=== PATIENT | female | born 1930 | race Caucasian/White ===

== ENCOUNTER 2017-01-06 13:13 | Emergency (ER) | payer MEDICARE ==
[~2017-01-06] VITALS: Ht 154.9 cm; Wt 43.2 kg
[~2017-01-06 13:13] MED LIST: ADV250INH IH; ATRV10T PO; CALC1TAB99 PO; CHOL10002 PO; CITA20TA11 PO; CLOT10TR MM; LORA0.5T PO; MAGN400T4 PO; MULT-1007 PO; PROP120C2 PO; RANI150C4 PO; WARF1TAB PO; WARF1TAB6 PO
[2017-01-06 13:14] VITALS: BP 149/53; PULSE 140; RESP 9; O2SAT 99
--- NOTE | 2017-01-06 14:00 | DRSVH ---
PROCEDURE: X-RAY CHEST ONE VIEW, PORTABLE ([id number]) INDICATIONS: chest pain TECHNIQUE: One view of the chest was acquired. COMPARISON: [facility], CR, XR CHEST 1VW (PORTABLE), 07/31/2015, 17:25. [facility], CR, XR CHEST 2VW, 06/16/2015, 10:01. FINDINGS: Surgical changes and devices: Cardiac pacemaking device and dual chamber leads as were previously the case.. Lungs and pleura: No pleural effusions or pneumothorax. Lungs are abnormal, with mild interstitial prominence and large lobe lines consistent with underlying COPD. Mediastinum: Mediastinal contours appear normal. Heart size is normal. Bones and chest wall: No suspicious bony lesions. Overlying soft tissues appear unremarkable. IMPRESSION: COPD, pacemaker and leads in stable position, source of new pain is not seen. Dictated by: Benedict Arrieta M.D. on 01/06/2017 at 13:57 Approved by: Benedict Arrieta M.D. on 01/06/2017 at 13:58
[2017-01-06 15:15] VITALS: BP 177/85; PULSE 70; RESP 11; O2SAT 98
--- NOTE | 2017-01-06 15:28 | ED.REPORT ---
HPI-Chest Pain 40 and Over Date of Service Jan 06, 2017 ED Provider: Yue Adames MD The patient is an 86 year old female with history of osteoporosis, afib ( anticoagulated on Warfarin, pacemaker), HTN, ulcers, and DM who presents to the ED via EMS due to chest pain onset [employer]. She describes the pain as an "ache." She has never had a heart attack. Nursing Notes Stated Complaint: CHEST PAIN Chief Complaint: Chest Pain Nursing Notes Reviewed: Yes Allergies: Coded Allergies: alprazolam (Verified Adverse Reaction, Severe, Hallucinations, 04/09/14) "Nightmares" hydrocodone (Verified Adverse Reaction, Severe, Nausea and rash, 08/10/15) trazodone (Verified Adverse Reaction, Severe, Hallucinations, 04/09/14) metronidazole (Verified Adverse Reaction, Mild, 04/09/14) nitrofurantoin (Verified Adverse Reaction, Mild, NAUSEA, 04/09/14) Sulfa (Sulfonamide Antibiotics) (Verified Adverse Reaction, Unknown, nausea, 04/09/14) Scheduled Atorvastatin (Lipitor) 10 Mg Tab 10 MG PO DAILY Calcium Carbonate/Vitamin D3 (Calcium 600 + Vit D 200 Tablet) 1 Each Tablet 1 EACH PO DAILY Cholecalciferol (Vitamin D3) 1,000 Unit Tablet 1,000 UNIT PO DAILY Citalopram (Citalopram) 20 Mg Tablet 20 MG PO QAM Clotrimazole (Clotrimazole) 10 Mg Geraldo 10 MG MM BID Fluticasone/Salmeterol (Advair 250-50 Diskus) 60 Puff/Inh Disk 1 PUFF IH BID Magnesium Oxide (Magnesium Oxide) 400 Mg Tablet 400 MG PO DAILY Multivitamin (Multi-Vitamin Daily) 1 Each Tablet 1 EACH PO DAILY Propranolol ER (Propranolol ER) 120 Mg Cap.sa.24h 120 MG PO QAM Ranitidine (Ranitidine) 150 Mg Capsule 150 MG PO HS Warfarin Sodium (Warfarin Sodium) 1 Mg Tablet 1 MG PO SunMonTueGuillaumedFri Warfarin Sodium (Coumadin) 1 Mg Tablet 0.5 MG PO ThuSat Scheduled PRN Lorazepam (Lorazepam) 0.5 Mg Tablet 0.25 MG PO Q8 PRN PRN For Anxiety General Time Seen by MD: 13:33 Chief Complaint Chest pain Hx Obtained From: Patient Arrived By: Ambulance Sudden in Onset?: Yes Onset Occurred: Just prior to arrival Symptom Duration: Since onset Location: : Chest left Radiation: : Does not radiate Recent Healthcare: No recent doctor visit, No recent hospitalization Similar Sx Previous: No Past Medical History Past Medical History Notes: PCP: Dr. Ortiz Past Medical History mild cognitive impairment. Non-ischemic cardiomyopathy Atrial tachycardias Mild to moderate coronary artery disease Lady [place] syndrome Chronic cough GERD Diverticulitis Familial tremor COPD with bronchitis Dementia Depression Diet controlled DM Reports: Diabetes mellitus Past Surgical History stents placed bilateral cataracts Reports: Appendectomy, Cholecystectomy, Hysterectomy Reports: Pacemaker insertion Smoking History Never Smoker Social History Alcohol Use: Denies alcohol use Drug Use: Denies drug use Ambulatory Status Independent Review of Systems Cardiovascular: Reports: Chest pain Complete sys rev & neg: except as marked. Physical Exam Initial Vital Signs Vital Signs (First) Date Time Temp Pulse Resp B/P Pulse Ox O2 Delivery O2 Flow Rate FiO2 01/06/17 13:14 37.0 140 9 149/53 99 Room Air Initial VS: Reviewed Head / Eyes: Atraumatic, Normocephalic ENT: Mucous membranes moist, Conjunctiva normal Neck: Supple, Non-tender Back: No CVA tenderness Lymphatic: No lymphadenopathy Extremities: Vascular intact, No swelling (no edema), No tenderness Skin: Warm, Dry, No cyanosis Neurologic: Alert, Oriented, Nonfocal (forgetfull) Psychiatric: Mood/affect normal, Behavior normal General/Constitutional: Awake, Alert, Cooperative Respiratory / Chest: Breath sounds = bilat, No respiratory distress Cardiovascular: Heart rate NL, Regular rhythm, Heart sounds NL, No murmurs Abdomen: Atraumatic, Soft, Non-tender Interpretation & Diagnostics Lab Results Interpretation Result Diagram: 01/06/17 1536 01/06/17 1536 Test 01/06/17 13:40 01/06/17 15:36 Hold Urine Received (Received) White Blood Count 7.3th/mm3 (3.8-10.1) Red Blood Count 4.13mil/mm3 (3.90-5.20) Hemoglobin 10.3g/dL (12.0-15.6) Hematocrit 33.1% (35.0-46.0) Mean Corpuscular Volume 80.1fL (81-100) Mean Corpuscular Hemoglobin 24.9pg (27.0-35.0) Mean Corpuscular Hemoglobin Concent 31.1% (32.0-37.0) Red Cell Distribution Width 16.7% (12.3-15.4) Platelet Count 317bil/L (150-400) Neutrophils (%) (Auto) 53.3% (40-74) Lymphocytes (%) (Auto) 34.2% (14-46) Monocytes (%) (Auto) 10.9% (4-12) Eosinophils (%) (Auto) 1.1% (0-5) Basophils (%) (Auto) 0.5% (0-3) Sodium Level 138mEq/L (134-144) Potassium Level 4.4mEq/L (3.5-5.2) Chloride Level 99mEq/L (97-108) Carbon Dioxide Level 30mmol/L (18-29) Blood Urea Nitrogen 10mg/dL (8-27) Creatinine 0.51mg/dL (0.57-1.00) Estimat Glomerular Filtration Rate 164mL/min (>59) Glucose Level 103mg/dL (60-99) Calcium Level 8.6mg/dL (8.5-10.1) Magnesium Level 2.4mg/dL (1.6-2.6) Total Bilirubin 0.3mg/dL (0.0-1.2) Aspartate Amino Transf (AST/SGOT) 23U/L (0-50) Alanine Aminotransferase (ALT/SGPT) 19U/L (0-32) Alkaline Phosphatase 69U/L (25-165) Troponin T < 0.010ug/L (0.0-0.011) Total Protein 6.0g/dL (6.4-8.4) Albumin 3.9g/dL (3.4-5.0) Hold Hernandez Top Tube Received (Received) X-Ray Chest Interpretation Chest Xray Interpretation: IMPRESSION: COPD, pacemaker and leads in stable position, source of new pain is not seen. Dictated by: Benedict Arrieta M.D. on 01/06/2017 at 13:57 Approved by: Benedict Arrieta M.D. on 01/06/2017 at 13:58 View: Portable Interpretation / Wet Read by: Interpret - Radiologist Re-Eval/Medical Decision Med Decision/Clinical Course Patient presents with acute onset chest pain at rest reports that she has no previous cardiac history has not had a heart attack and is sent in by her friend. Shortly after arrival her daughter calls to note that she has had multiple episodes of admission with chest pain with negative rule out each time. She is followed by Dr. Mcintosh. His belief is that most of her chest pain at this point is musculoskeletal. The daughter also reports significant cognitive deficits which are confirmed throughout her emergency room visit today. Rule out workup is negative in the emergency room she remains chest free at time of discharge and throughout emergency room stay. Will follow up with Dr. Mcintosh as needed Counseled Regarding: Diagnosis, Lab results, Need for follow-up, When/why to return to ED Discharge & Departure Primary Impression: Non-cardiac chest pain Disposition: Home Discharge Condition All VS Reviewed: Yes Condition: Stable Patient Instructions: Chest Pain (ED) Additional Instructions: Your workup today does not suggest any life-threatening findings. There is no evidence of heart attack, near heart attack, pneumonia, or collapsed lung. Please continue all of your usual medications. If you have any new or different symptoms please feel free to return to the emergency department Please follow up with Dr. Mcintosh. A copy of the note with labs and studies from today will be forwarded to him I hope you have a relaxing and pain-free weekend Referrals: Nataliya Ortiz MD (PCP) Scribe Attestation Portion of this note were transcribed by Jose Luis Reinoso. I, Dr. Adames, personally performed the history, physical exam, and medical decision-making: I reviewed and confirmed the accuracy for the information in the transcribed note. Signed by: stewart Bull, 01/06/17 1500 copies to: Zach Mcintosh MD; Nataliya Ortiz MD, Shawna L MD Jan 06, 2017 15:28 JOSE LUIS REINOSO Jan 06, 2017 15:35
[2017-01-06 15:43] LABS: BASOPHILS % (AUTO) 0.5 % (0-3); EOSINOPHILS % (AUTO) 1.1 % (0-5); MONOCYTES % (AUTO) 10.9 % (4-12); Mean Corpuscular Hemoglobin 24.9 pg (27.0-35.0); Mean Corpuscular Volume 80.1 fL (81-100); NEUTROPHILS % (AUTO) 53.3 % (40-74); Platelet Count 317 bil/L (150-400)
[2017-01-06 15:45] VITALS: BP 169/69; PULSE 70; RESP 13; O2SAT 99
[2017-01-06 16:23] LABS: Magnesium 2.4 mg/dL (1.6-2.6); TROPONIN T < 0.010 ug/L (0.0-0.011)
[2017-01-06 17:11] VITALS: BP 169/69; PULSE 70; RESP 13; O2SAT 99
== END 2017-01-06 17:11 | disposition home or self-care (01) ==
LOC: EDBD 13:13 → SED 13:13
DX: R07.89 Other chest pain (principal); I10 Essential (primary) hypertension; E11.59 Type 2 diabetes mellitus with other circulatory complications; K21.9 Gastro-esophageal reflux disease without esophagitis; I25.10 Atherosclerotic heart disease of native coronary artery without angina pectoris; Z95.0 Presence of cardiac pacemaker; Z79.01 Long term (current) use of anticoagulants; Z88.1 Allergy status to other antibiotic agents; Z88.2 Allergy status to sulfonamides; Z88.5 Allergy status to narcotic agent; Z88.8 Allergy status to other drugs, medicaments and biological substances

== ENCOUNTER 2017-01-08 10:48 | Emergency (ER) | payer MEDICARE ==
[~2017-01-08] VITALS: Ht 154.9 cm; Wt 43.2 kg
[2017-01-08 10:54] VITALS: BP 127/66; PULSE 70; RESP 13; O2SAT 96
--- NOTE | 2017-01-08 10:57 | ED.REPORT ---
HPI-Chest Pain 40 and Over Date of Service Jan 08, 2017 ED Provider: Gavino Turner MD Pt is an 86 year old female with a hx of COPD, pacemaker on Warfarin, and DM presenting to the ED via EMS complaining of moderate aching chest pain onset around 0830 today. Associated symptoms include mild dizziness. Denies nausea, diaphoresis, SOB or palpitations. She reports that the chest pain began when she woke up this morning. Pt states that she called her neighbor who is a nurse , and she came over and called EMS. Pain is now resolved, and did not radiate. Pt was given 324 mg ASA en route, and pre-hospital report shows the pt profoundly hypertensive at 206/97. She reports similar symptoms in the past, and was just seen in follow up for lung nodules which are improving. Her hx is complicated due to the pt's memory problems. She was seen in the ED 2 days ago for similar symptoms. Nursing Notes Stated Complaint: CHEST PAIN Chief Complaint: Chest Pain Nursing Notes Reviewed: Yes ([employer] not reconciled - EMR indicates Warfarin use) Allergies: Coded Allergies: alprazolam (Verified Adverse Reaction, Severe, Hallucinations, 04/09/14) "Nightmares" hydrocodone (Verified Adverse Reaction, Severe, Nausea and rash, 08/10/15) trazodone (Verified Adverse Reaction, Severe, Hallucinations, 04/09/14) metronidazole (Verified Adverse Reaction, Mild, 04/09/14) nitrofurantoin (Verified Adverse Reaction, Mild, NAUSEA, 04/09/14) Sulfa (Sulfonamide Antibiotics) (Verified Adverse Reaction, Unknown, nausea, 04/09/14) Scheduled Atorvastatin (Lipitor) 10 Mg Tab 10 MG PO DAILY Calcium Carbonate/Vitamin D3 (Calcium 600 + Vit D 200 Tablet) 1 Each Tablet 1 EACH PO DAILY Cholecalciferol (Vitamin D3) 1,000 Unit Tablet 1,000 UNIT PO DAILY Citalopram (Citalopram) 20 Mg Tablet 20 MG PO QAM Clotrimazole (Clotrimazole) 10 Mg Geraldo 10 MG MM BID Fluticasone/Salmeterol (Advair 250-50 Diskus) 60 Puff/Inh Disk 1 PUFF IH BID Magnesium Oxide (Magnesium Oxide) 400 Mg Tablet 400 MG PO DAILY Multivitamin (Multi-Vitamin Daily) 1 Each Tablet 1 EACH PO DAILY Propranolol ER (Propranolol ER) 120 Mg Cap.sa.24h 120 MG PO QAM Ranitidine (Ranitidine) 150 Mg Capsule 150 MG PO HS Warfarin Sodium (Warfarin Sodium) 1 Mg Tablet [facility] Sodium (Coumadin) 1 Mg Tablet 0.5 MG PO ThuSat Scheduled PRN Lorazepam (Lorazepam) 0.5 Mg Tablet 0.25 MG PO Q8 PRN PRN For Anxiety General Time Seen by MD: 10:51 Chief Complaint Chest pain Hx Obtained From: EMS Arrived By: Ambulance Sudden in Onset?: No Onset Occurred: 1 - 4 hours ago Symptom Duration: Duration unknown Quality: Aching, Painful Radiation: : Does not radiate Migration/Movement: Reports: None Severity: Current: No pain currently Severity: Maximum: Moderate Recent Healthcare: No recent hospitalization, Recent doctor visit Similar Sx Previous: Yes Past Medical History Past Medical History Notes: PCP: Dr. 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 Non-ischemic cardiomyopathy Atrial tachycardias Mild to moderate coronary artery disease Lady [place] syndrome (hx of MAC) Chronic cough GERD Diverticulitis Familial tremor COPD with bronchitis Dementia Anxiety Depression Diet controlled DM Dyslipidemia Mitral-Valve regurgitation Squamous cell skin cancer, upper arm Esophageal dysmotility Pulmonary nodules Patent foramen ovale Asthma Atrophic vaginitis Acne rosacea Reports: Diabetes mellitus Past Surgical History stents placed bilateral cataracts hx of prior ablation Reports: Appendectomy, Cholecystectomy, Hysterectomy Reports: Pacemaker insertion Smoking History Former Smoker (65 years ago) Social History Alcohol Use: Denies alcohol use Drug Use: Denies drug use Ambulatory Status Independent Review of Systems Respiratory: Reports: Shortness of breath Cardiovascular: Reports: Chest pain, Denies: Palpitations GI: Denies: Nausea, Vomiting Skin: Denies Diaphoresis Neurologic: Reports: Dizziness Complete sys rev & neg: except as marked. Physical Exam Initial Vital Signs Vital Signs (First) Date Time Temp Pulse Resp B/P Pulse Ox O2 Delivery O2 Flow Rate FiO2 01/08/17 10:54 36.7 70 13 127/66 96 Room Air Initial VS: Reviewed, Unavailable (none on chart, vitals from yesterday's ED Visit notable for HR 140) Head / Eyes: Atraumatic, Normocephalic, PERRL ENT: Mucous membranes moist, Conjunctiva normal, No scleral icterus Skin: Warm, Dry, No cyanosis Neurologic: Alert, Oriented, Nonfocal Psychiatric: Mood/affect normal, Behavior normal, Normal thought content General/Constitutional: Awake, Alert, No acute distress Mild dementia Respiratory / Chest: Breath sounds NL, Breath sounds = bilat, No respiratory distress, No rales, No rhonchi, No wheezing, No stridor, No chest tenderness Cardiovascular: Heart rate NL, Regular rhythm, Pulses = bilaterally Heart Rate / Rhythm: Negative: Tachycardia Not tachycardic like 2 days ago. Good paced rhythm. Neck: Atraumatic, No JVD Lower Extremity / Pelvis / MS: No edema Interpretation & Diagnostics Interpretation & Diagnostics: Labs from yesterday's ED visit reviewed. Troponin x1 negative, no INR listed (prior records indicate warfarin and listed on ED note, but meds not reconciled yesterday) Lab Results Interpretation Result Diagram: 01/08/17 1132 01/08/17 1132 Test 01/08/17 11:32 01/08/17 12:55 01/08/17 13:15 White Blood Count 6.4th/mm3 (3.8-10.1) Red Blood Count 4.00mil/mm3 (3.90-5.20) Hemoglobin 10.1g/dL (12.0-15.6) Hematocrit 32.0% (35.0-46.0) Mean Corpuscular Volume 80.0fL (81-100) Mean Corpuscular Hemoglobin 25.3pg (27.0-35.0) Mean Corpuscular Hemoglobin Concent 31.6% (32.0-37.0) Red Cell Distribution Width 16.5% (12.3-15.4) Platelet Count 333bil/L (150-400) Neutrophils (%) (Auto) 59.2% (40-74) Lymphocytes (%) (Auto) 26.4% (14-46) Monocytes (%) (Auto) 11.7% (4-12) Eosinophils (%) (Auto) 1.4% (0-5) Basophils (%) (Auto) 1.1% (0-3) Prothrombin Time 22.3sec (8.1-12.5) Prothromb Time International Ratio 2.05ratio Sodium Level 137mEq/L (134-144) Potassium Level 4.0mEq/L (3.5-5.2) Chloride Level 101mEq/L (97-108) Carbon Dioxide Level 26mmol/L (18-29) Blood Urea Nitrogen 7mg/dL (8-27) Creatinine 0.46mg/dL (0.57-1.00) Estimat Glomerular Filtration Rate 184mL/min (>59) Glucose Level 138mg/dL (60-99) Calcium Level 8.1mg/dL (8.5-10.1) Magnesium Level 1.9mg/dL (1.6-2.6) Total Bilirubin 0.3mg/dL (0.0-1.2) Aspartate Amino Transf (AST/SGOT) 20U/L (0-50) Alanine Aminotransferase (ALT/SGPT) 16U/L (0-32) Alkaline Phosphatase 61U/L (25-165) Total Protein 5.7g/dL (6.4-8.4) Albumin 3.4g/dL (3.4-5.0) Hold Hernandez Top Tube Received (Received) Hold Urine Received (Received) Troponin T < 0.010ug/L (0.0-0.011) Lab Results Interpretation: CBC normal CMP normal Troponin #1 negative Troponin #2 negative INR therapeutic ECG Interpretation ECG Interpretation: Atrial-sensed ventricular-paced rhythm. Unchanged from yesterday. Time: 11:03 Interpreted by: ED physician Normal ECG Interpretation: Normal rate (71) X-Ray Chest Interpretation Chest Xray Interpretation: IMPRESSION: Left costophrenic sulcus atelectasis or infiltrate. Acute disease is not seen the chest otherwise. Dictated by: Colin Grove M.D. on 01/08/2017 at 11:38 View: Portable, 1 view Interpretation / Wet Read by: Interpret - Radiologist Re-Eval/Medical Decision Med Decision/Clinical Course This is an 86-year-old female presents to the emergency department complaining of chest pain. She does have mild dementia and so cannot remember certain details. She was just seen yesterday for an episode of chest pain and released. Those charts were reviewed. Apparently a neighbor was visiting visiting visiting and the patient was having some chest discomfort so the neighbor called 911. Patient reports a chest ache, but cannot really further describe it is no clear radiation features, she denies any exertional component , and gave contradictory answers initially as to whether or not it resolved-old placing it was a trace component that was mostly improved. She had received aspirin and nitroglycerin 3 by EMS prior to arrival. She was mildly hypertensive on arrival as well. She clinically appeared well. She received an additional nitroglycerin and nitro paste in the department with complete resolution of symptoms. She arrived to the emergency department she indicated she wanted to leave and go home. Reviewed the charts from yesterday with the patient presented with chest pain. The vitals from that presentation include a heart rate of 140, although this was not matched by the EKG that was performed yesterday. The patient does have a pacemaker. She has had a recent Chest CT scan in October that was notable for coronary artery disease or at least coronary calcification per the radiology report, last stress test was number of years ago and was allegedly negative at that time. Interestingly the patient does not want her family contacted, and it sounds like this is because the family had to come pick her up from the emergency department yesterday when she left the department, and she does not want them to know that she was brought back to the emergency department today. She was a paced rhythm on EKG. Outside of the EKG the patient has heart score of 5 (patient is not fully scoreable due to the pacing rhythm). Additionally, since the patient does as a repeat visit, does not appear to have had recent stress testing, she will be reasonable. However when I recommended admission, the patient declines since she wishes to go home. She does have some memory deficits which complicate things, but appears to have intact, adequate decisional capacity. Furthermore in this setting medical management still seems reasonable and appropriate, which appears to have been the same conclusion reached previously by her mill representative. While the patient wanted to go home directly, I was able to have the patient agreed to remainder [facility] department for set of serial troponins-these were negative. Blood work was normal, demonstrates a therapeutic INR. I am not finding indication of a pulmonary embolism, and again the patient's therapeutic INR, there are no findings of pneumothorax, and no clinical features to really suggest dissection and I can appreciate. He has just had a CT scan past 2 months, and I am not finding any indication for repeat CT today. Patient's blood pressures did normalize. On reexamination, the patient's asymptomatic and is generally clinically well- appearing. He is informed of the serial troponins, again offered the chance to remain, but again requests a taxi home. I have indicated that I would recommend close follow-up with her mill representative given the sequential ED visits, and the intermediate MACE risk. Patient does agree to return to the emergency department if symptoms recur. Talk to the on-call mill representative to facilitate close follow-up. The patient's advised to call the mill representative office tomorrow to schedule an appointment. Patient is discharged in stable condition, assymptomatic. Source of Hx: Old records Time of Eval: 12:18 Patient Status: Condition improved Re-Evaluation/Progress Note: Pt chest pain is resolved. Discussed plan for admission. Pt is hesitant to be admitted. Time of Eval: 14:22 Patient Status: Condition improved Re-Evaluation/Progress Note: Discussed negative Troponin results. Pt would like to be discharged and agrees to return with new or worsening symptoms. Consultation : Referral / Consult Name: Saravanan Bender MD Consulted With: Cardiology Call Returned at: 14:31 Note: Dr. Bender will facilitate follow up with Dr. Mcintosh's office. Differential Diagnosis: Positive: Chest pain, acute, Negative: Anxiety disorder, Aortic stenosis, Congestive heart failure, Dysrhythmia, Esophageal rupture, Gun shot wound chest, Peptic ulcer disease, Pneumonia, Pneumothorax, Pulmonary edema, Pulmonary embolism, Rib fracture Counseled Regarding: Diagnosis, Lab results, Need for follow-up, When/why to return to ED Discharge & Departure Primary Impression: Chest pain Chest pain type: unspecified Qualified Code: R07.9 - Chest pain, unspecified Additional Impression: Anticoagulated on warfarin Disposition: ADMITTED TO HOSPITAL Discharge Condition All VS Reviewed: Yes Condition: Improved Referrals: Nataliya Ortiz MD (PCP) Nakul Attestation Portions of this note were transcribed by Carine Cedeno. I, Dr. Turner personally performed the history, physical exam and medical decision-making; I reviewed and confirmed the accuracy of the information in the transcribed note. Signed by: Nakul Loco, 01/08/2017 and [Time]. copies to: Nataliya Ortiz MD, Matthew F MD Jan 08, 2017 10:57 CARINE CEDENO Jan 08, 2017 11:16
[2017-01-08] MEDS ORDERED: Nitroglycerin 2% 1 Gm Ointment TOPICAL SCH (11:10)
--- NOTE | 2017-01-08 11:42 | DRSVH ---
PROCEDURE: X-RAY CHEST ONE VIEW, PORTABLE ([id number]) INDICATIONS: chest pain TECHNIQUE: One view of the chest was acquired. COMPARISON: [facility], CR, XR CHEST 1VW (PORTABLE), 07/31/2015, 17:25. [facility], CR, XR CHEST 1VW (PORTABLE), 01/06/2017, 13:38. FINDINGS: Surgical changes and devices: A 4-lead pacemaker is present from the left side. Monitor leads are see n over the chest and there is oxygen tubing present. Lungs and pleura: No pleural effusions or pneumothorax. Lungs are clear except for some patchy dens ity at the left costophrenic sulcus suggesting some atelectasis or infiltrate.. Mediastinum: Mediastinal contours appear normal. Heart size is normal. Bones and chest wall: No suspicious bony lesions. Overlying soft tissues appear unremarkable. IMPRESSION: Left costophrenic sulcus atelectasis or infiltrate. Acute disease is not seen the chest o therwise. Dictated by: Colin Grove M.D. on 01/08/2017 at 11:38 Approved by: Colin Grove M.D. on 01/08/2017 at 11:40
[2017-01-08 11:45] LABS: BASOPHILS % (AUTO) 1.1 % (0-3); EOSINOPHILS % (AUTO) 1.4 % (0-5); MONOCYTES % (AUTO) 11.7 % (4-12); Mean Corpuscular Hemoglobin 25.3 pg (27.0-35.0); NEUTROPHILS % (AUTO) 59.2 % (40-74); Platelet Count 333 bil/L (150-400)
[2017-01-08 12:05] LABS: TROPONIN T 0.01 ug/L (0.0-0.011)
[2017-01-08 12:15] LABS: INR 2.05 ratio
[2017-01-08 12:17] LABS: Magnesium 1.9 mg/dL (1.6-2.6)
[2017-01-08 12:22] VITALS: BP 170/75; PULSE 76; RESP 14; O2SAT 100
[2017-01-08 14:08] VITALS: BP 148/79; PULSE 99; RESP 15; O2SAT 100
[2017-01-08 15:20] VITALS: BP 140/61; PULSE 73; O2SAT 100
== END 2017-01-08 15:24 | disposition home or self-care (01) ==
LOC: SED 11:15
DX: R07.89 Other chest pain (principal); R42 Dizziness and giddiness; E11.59 Type 2 diabetes mellitus with other circulatory complications; I25.10 Atherosclerotic heart disease of native coronary artery without angina pectoris; I42.8 Other cardiomyopathies; J44.9 Chronic obstructive pulmonary disease, unspecified; F03.90 Unspecified dementia, unspecified severity, without behavioral disturbance, psychotic disturbance, mood disturbance, and anxiety; E78.5 Hyperlipidemia, unspecified; Z95.0 Presence of cardiac pacemaker; Z95.5 Presence of coronary angioplasty implant and graft; Z79.01 Long term (current) use of anticoagulants; Z87.891 Personal history of nicotine dependence; Z88.1 Allergy status to other antibiotic agents; Z88.2 Allergy status to sulfonamides; Z88.5 Allergy status to narcotic agent; Z88.8 Allergy status to other drugs, medicaments and biological substances

== ENCOUNTER 2017-01-19 12:06 | Emergency (ER) | payer MEDICARE ==
[~2017-01-19] VITALS: Ht 154.9 cm; Wt 41.8 kg
[2017-01-19 12:17] VITALS: BP 116/65; PULSE 70; RESP 16; O2SAT 98
[2017-01-19] MEDS ORDERED: LORazepam 0.5 mg Tablet PO ONE (12:45)
[2017-01-19 12:55] VITALS: BP 118/67; PULSE 69; RESP 16; O2SAT 98
--- NOTE | 2017-01-19 13:14 | ED.REPORT ---
HPI-Chest Pain 40 and Over Date of Service Jan 19, 2017 ED Provider: Yue Adames MD History of Present Illness: Luma Das is a 86 year old woman with a PMH of mild cognitive difficulties, CAD, Afib s/p ablation and pacer implantation, HTN, and anxiety. She presents today complaining of mild sub-sternal chest pain without associated SOB, diaphoresis or other constitutional symptoms. She has had multiple ED visits with similar complaints over the past year, all of which have led to a benign workup. Her daughter relates that there is likley a psychiatric component to these repeated presentations that they are actively working to evaluate and treat. She further states that in the past 0.25 mg of Ativan have taken care of her symptoms in the past. Nursing Notes Stated Complaint: CHEST PAIN Chief Complaint: Chest Pain Nursing Notes Reviewed: Yes Allergies: Coded Allergies: alprazolam (Verified Adverse Reaction, Severe, Hallucinations, 01/19/17) "Nightmares" hydrocodone (Verified Adverse Reaction, Severe, Nausea and rash, 01/19/17) trazodone (Verified Adverse Reaction, Severe, Hallucinations, 01/19/17) metronidazole (Verified Adverse Reaction, Mild, 01/19/17) nitrofurantoin (Verified Adverse Reaction, Mild, NAUSEA, 01/19/17) Sulfa (Sulfonamide Antibiotics) (Verified Adverse Reaction, Unknown, nausea, 01/19/17) Scheduled Atorvastatin (Lipitor) 10 Mg Tab 10 MG PO DAILY Calcium Carbonate/Vitamin D3 (Calcium 600 + Vit D 200 Tablet) 1 Each Tablet 1 EACH PO DAILY Cholecalciferol (Vitamin D3) 1,000 Unit Tablet 1,000 UNIT PO DAILY Citalopram (Citalopram) 20 Mg Tablet 20 MG PO QAM Clotrimazole (Clotrimazole) 10 Mg Geraldo 10 MG MM BID Fluticasone/Salmeterol (Advair 250-50 Diskus) 60 Puff/Inh Disk 1 PUFF IH BID Magnesium Oxide (Magnesium Oxide) 400 Mg Tablet 400 MG PO DAILY Multivitamin (Multi-Vitamin Daily) 1 Each Tablet 1 EACH PO DAILY Propranolol ER (Propranolol ER) 120 Mg Cap.sa.24h 120 MG PO QAM Ranitidine (Ranitidine) 150 Mg Capsule 150 MG PO HS Warfarin Sodium (Warfarin Sodium) 1 Mg Tablet 1 [facility] [place] Warfar[facility] Sodium (Coumadin) 1 Mg Tablet 0.5 MG PO ThuSat Scheduled PRN Lorazepam (Lorazepam) 0.5 Mg Tablet 0.25 MG PO Q8 PRN PRN For Anxiety General Time Seen by MD: 12:00 Chief Complaint Chest pain Hx Obtained From: Patient Sudden in Onset?: No Onset Occurred: 1 - 4 hours ago Symptom Duration: Waxes and wanes Location: : Chest left (More midline) Quality: Aching Radiation: : Does not radiate Severity: Current: Mild Severity: Maximum: Mild Recent Healthcare: Recent doctor visit Similar Sx Previous: Yes Risk Factors )( CAD Risk Stratification Hypertension Known CAD Past Medical History Past Medical History Notes: PCP: Dr. 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 Non-ischemic cardiomyopathy Atrial tachycardias Mild to moderate coronary artery disease [place] syndrome (hx of MAC) Chronic cough GERD Diverticulitis Familial tremor COPD with bronchitis Dementia Anxiety Depression Diet controlled DM Dyslipidemia Mitral-Valve regurgitation Squamous cell skin cancer, upper arm Esophageal dysmotility Pulmonary nodules Patent foramen ovale Asthma Atrophic vaginitis Acne rosacea Reports: Diabetes mellitus Past Surgical History stents placed bilateral cataracts hx of prior ablation Reports: Appendectomy, Cholecystectomy, Hysterectomy Reports: Pacemaker insertion Smoking History Former Smoker Social History Alcohol Use: Denies alcohol use Drug Use: Denies drug use Ambulatory Status Independent Review of Systems Cardiovascular: Reports: Chest pain Complete sys rev & neg: except as marked. Physical Exam Physical Exam Notes: Gen: A/O x3 pleasant mildly confused elderly woman in NAD Neck: Supple, non tender, no thyromegally HEENT: mucous membranes slightly dry, PERRL, EOMI CV: RRR, no murmurs rubs or gallops, subQ pacer in L upper chest Abdomen: soft, non-tender, no organomegally Extr: No cyanosis, clubbing or edema, thin skin with multiple bruises Neuro: CN 2-12 grossly intact, no focal neurologic deficit. Initial Vital Signs Vital Signs (First) Date Time Temp Pulse Resp B/P Pulse Ox O2 Delivery O2 Flow Rate FiO2 01/19/17 12:17 37.1 70 16 116/65 98 Room Air Initial VS: Reviewed Interpretation & Diagnostics Lab Results Interpretation Test 01/19/17 13:53 Hold Purple Top Tube Received (Received) Hold Blue Top Tube Received (Received) Hold Red Top Tube Received (Received) Hold Elsa Top Tube Received (Received) Hold Hernandez Top Tube Received (Received) Re-Eval/Medical Decision Med Decision/Clinical Course After discussion with her daughter it became apparent that this is very unlikely to be a concerning issue. The patient's ECG was benign and her symptoms largely resolved follow administration of Ativan. The patient presents a high risk for further unnecessary evaluation, but her family is actively working on a strategy to help avoid such circumstances in the future. Counseled Regarding: Diagnosis Discharge & Departure Shift Change Sign-Out Patient Care Transferred: No Discussed Complaint(s): Yes Response to Therapy: Improved Primary Impression: Non-cardiac chest pain Additional Impression: Anxiety Disposition: Home Discharge Condition All VS Reviewed: Yes Condition: Stable Patient Instructions: Chest Pain (ED) Additional Instructions: The chest pain you are feeling is highly likely to be due to a small vessel in your heart that is not dangerous, there is also likely a component of anxiety contributing to your symptoms. There is no need for further evaluation at this time. If in the future you experience chest pain much worse than what you are experiencing currently with associated sweating, radiation of pain to the arm or jaw, shortness of breath, or profound weakness please come in to the ER for further evaluation. Referrals: Nataliya Ortiz MD (PCP) Attending Statement Patient seen and examined. Agree with assessment and plan as above. copies to: Nataliya Ortiz MD, David E DO Jan 19, 2017 13:14 Yue Adames MD Jan 19, 2017 19:15
[2017-01-19 15:14] VITALS: BP 162/69; PULSE 70; RESP 16; O2SAT 97
== END 2017-01-19 15:15 | disposition home or self-care (01) ==
LOC: SED 12:06
DX: R07.89 Other chest pain (principal); F41.9 Anxiety disorder, unspecified; G31.84 Mild cognitive impairment of uncertain or unknown etiology; I25.10 Atherosclerotic heart disease of native coronary artery without angina pectoris; I48.91 Unspecified atrial fibrillation; I10 Essential (primary) hypertension; E11.9 Type 2 diabetes mellitus without complications; K21.9 Gastro-esophageal reflux disease without esophagitis; J44.9 Chronic obstructive pulmonary disease, unspecified; E78.5 Hyperlipidemia, unspecified; J45.909 Unspecified asthma, uncomplicated; Z95.0 Presence of cardiac pacemaker; Z95.818 Presence of other cardiac implants and grafts; Z87.891 Personal history of nicotine dependence; Z79.01 Long term (current) use of anticoagulants; Z88.8 Allergy status to other drugs, medicaments and biological substances; Z88.5 Allergy status to narcotic agent; Z88.1 Allergy status to other antibiotic agents; Z88.2 Allergy status to sulfonamides

== ENCOUNTER 2017-01-20 16:12 | Emergency (ER) | payer MEDICARE ==
[~2017-01-20] VITALS: Ht 154.9 cm; Wt 41.8 kg
[2017-01-20 16:17] VITALS: BP 155/73; PULSE 70; RESP 16; O2SAT 99
[2017-01-20 16:58] LABS: BASOPHILS % (AUTO) 0.6 % (0-3); EOSINOPHILS % (AUTO) 1.3 % (0-5); Mean Corpuscular Hemoglobin 25.7 pg (27.0-35.0); NEUTROPHILS % (AUTO) 57.7 % (40-74); Platelet Count 358 bil/L (150-400)
[2017-01-20 17:23] LABS: TROPONIN T < 0.010 ug/L (0.0-0.011)
[2017-01-20 17:30] LABS: Magnesium 2.3 mg/dL (1.6-2.6)
--- NOTE | 2017-01-20 17:59 | ED.REPORT ---
HPI-Chest Pain 40 and Over Date of Service Jan 20, 2017 ED Provider: Harjeet Bull MD The patient is a 86 year old woman with history of mild cognitive difficulties, CAD, Afib s/p ablation and pacer implantation on warfarin, HTN, and anxiety, who presents to the emergency department with her daughter complaining of substernal chest pain that began this morning around 0900 when she woke up. Her daughter states the patient is unable to remember when the pain started and has given her two different stories. The pain started at sometime this morning around 0900 and continued until around 1600. Her pain is not worse with exertion. She does notice increased pain with coughing. Her daughter believes she may have had a panic attack and gave the patient Ativan. She denies acidic taste in her mouth or acid reflux symptoms. She has had multiple ED visits with similar complaints over the past year, all of which have led to a benign workup. Her most recent visit was yesterday. Her daughter has a plan to get in contact with a psychiatrist. She has not had any recent falls or head injuries. Nursing Notes Stated Complaint: CHEST PAIN Chief Complaint: Chest Pain Nursing Notes Reviewed: Yes Allergies: Coded Allergies: hydroxyzine (Verified Allergy, Severe, memory loss, 01/20/17) alprazolam (Verified Adverse Reaction, Severe, Hallucinations, 01/20/17) "Nightmares" hydrocodone (Verified Adverse Reaction, Severe, Nausea and rash, 01/20/17) trazodone (Verified Adverse Reaction, Severe, Hallucinations, 01/20/17) metronidazole (Verified Adverse Reaction, Mild, 01/20/17) nitrofurantoin (Verified Adverse Reaction, Mild, NAUSEA, 01/20/17) Sulfa (Sulfonamide Antibiotics) (Verified Adverse Reaction, Unknown, nausea, 01/20/17) Scheduled Atorvastatin (Lipitor) 10 Mg Tab 10 MG PO DAILY Calcium Carbonate/Vitamin D3 (Calcium 600 + Vit D 200 Tablet) 1 Each Tablet 1 EACH PO DAILY Cholecalciferol (Vitamin D3) 1,000 Unit Tablet 1,000 UNIT PO DAILY Citalopram (Citalopram) 20 Mg Tablet 20 MG PO QAM Clotrimazole (Clotrimazole) 10 Mg Geraldo 10 MG MM BID Fluticasone/Salmeterol (Advair 250-50 Diskus) 60 Puff/Inh Disk 1 PUFF IH BID Magnesium Oxide (Magnesium Oxide) 400 Mg Tablet 400 MG PO DAILY Multivitamin (Multi-Vitamin Daily) 1 Each Tablet 1 EACH PO DAILY Propranolol ER (Propranolol ER) 120 Mg Cap.sa.24h 120 MG PO QAM Ranitidine (Ranitidine) 150 Mg Capsule 150 MG PO HS Warfarin Sodium (Warfarin Sodium) 1 Mg Tablet 1 MG PO Sun[facility]WedFri Warfarin Sodium (Coumadin) 1 Mg Tablet 0.5 MG PO ThuSat Scheduled PRN Lorazepam (Lorazepam) 0.5 Mg Tablet 0.25 MG PO Q8 PRN PRN For Anxiety General Time Seen by MD: 17:58 Chief Complaint Chest pain Hx Obtained From: Patient, Daughter Arrived By: Walk-in Sudden in Onset?: Yes Onset Occurred: 9 - 12 hours ago Symptom Duration: 5 - 8 hours Location: : Substernal Quality: Painful Severity: Current: Mild Severity: Maximum: Moderate Recent Healthcare: No recent hospitalization, Recent doctor visit Similar Sx Previous: Yes Past Medical History Past Medical History Notes: PCP: Dr. Ortiz seen in ED yesterday for chest pain Nuclear stress test November [address] of the chest October 2016 [facility] for lung nodules, but also interpreted as positive for coronary artery disease Past Medical History Mild cognitive impairment with mild memory impairment. Non-ischemic cardiomyopathy Atrial tachycardias Mild to moderate coronary artery disease Lady [place] syndrome (hx of MAC) Chronic cough GERD Diverticulitis Familial tremor COPD with bronchitis Dementia Anxiety Depression Diet controlled DM Dyslipidemia Mitral-Valve regurgitation Squamous cell skin cancer, upper arm Esophageal dysmotility Pulmonary nodules Patent foramen ovale Asthma Atrophic vaginitis Acne rosacea Atrial fibrillation on Warfarin Past Surgical History Cardiac stents placed Bilateral cataracts Hx of prior ablation Reports: Appendectomy, Cholecystectomy, Hysterectomy Reports: Pacemaker insertion Family History Noncontributory Smoking History Former Smoker Social History Alcohol Use: Denies alcohol use Drug Use: Denies drug use Other Social History: Good social support, Local resident Ambulatory Status Independent Review of Systems Respiratory: Reports: Non-productive cough, Denies: Dyspnea on exertion Cardiovascular: Reports: Chest pain Psychiatric: Reports: Anxiety Complete sys rev & neg: except as marked. Physical Exam Initial Vital Signs Vital Signs (First) Date Time Temp Pulse Resp B/P Pulse Ox O2 Delivery O2 Flow Rate FiO2 01/20/17 16:17 36.1 70 16 155/73 99 Room Air Initial VS: Reviewed Head / Eyes: Atraumatic, Normocephalic, PERRL Neck: Supple, Non-tender, Full range of motion Lymphatic: No lymphadenopathy Extremities: Vascular intact, Neuro intact, No swelling, No tenderness Skin: Warm, Dry, No cyanosis Neurologic: Alert, Nonfocal Psychiatric: Mood/affect normal, Behavior normal, Normal thought content General/Constitutional: Awake, Alert, Cooperative Respiratory / Chest: Atraumatic, Breath sounds NL, Breath sounds = bilat, No respiratory distress, No rales, No rhonchi, No wheezing, No stridor, No chest tenderness Cardiovascular: Heart rate NL, Heart sounds NL, No murmurs, No rubs, Cap refill not delayed, Peripheral circulation NL, Pulses = bilaterally Heart Rate / Rhythm: Positive: Irregular rhythm Abdomen: Atraumatic, Soft, Non-tender, McBurney's non-tender, No guarding, No rebound, BS normoactive, No distention, No hernia, No palpable mass Lower Extremity / Pelvis / MS: Neurologic intact, Vascular intact No calf swelling or tenderness. ENT: Airway patent Mouth: Positive: Mucous membranes dry (slightly) Interpretation & Diagnostics Lab Results Interpretation Result Diagram: 01/20/17 1645 01/20/17 1645 Test 01/20/17 16:45 01/20/17 20:13 01/20/17 20:53 White Blood Count 8.4th/mm3 (3.8-10.1) Red Blood Count 4.36mil/mm3 (3.90-5.20) Hemoglobin 11.2g/dL (12.0-15.6) Hematocrit 34.9% (35.0-46.0) Mean Corpuscular Volume 80.0fL (81-100) Mean Corpuscular Hemoglobin 25.7pg (27.0-35.0) Mean Corpuscular Hemoglobin Concent 32.1% (32.0-37.0) Red Cell Distribution Width 15.8% (12.3-15.4) Platelet Count 358bil/L (150-400) Neutrophils (%) (Auto) 57.7% (40-74) Lymphocytes (%) (Auto) 27.3% (14-46) Monocytes (%) (Auto) 13.0% (4-12) Eosinophils (%) (Auto) 1.3% (0-5) Basophils (%) (Auto) 0.6% (0-3) Prothrombin Time 28.7sec (8.1-12.5) Prothromb Time International Ratio 2.63ratio Sodium Level 130mEq/L (134-144) Potassium Level 4.6mEq/L (3.5-5.2) Chloride Level 93mEq/L (97-108) Carbon Dioxide Level 25mmol/L (18-29) Blood Urea Nitrogen 12mg/dL (8-27) Creatinine 0.49mg/dL (0.57-1.00) Estimat Glomerular Filtration Rate 172mL/min (>59) Glucose Level 141mg/dL (60-99) Calcium Level 8.8mg/dL (8.5-10.1) Magnesium Level 2.3mg/dL (1.6-2.6) Total Bilirubin 0.2mg/dL (0.0-1.2) Aspartate Amino Transf (AST/SGOT) 27U/L (0-50) Alanine Aminotransferase (ALT/SGPT) 21U/L (0-32) Alkaline Phosphatase 74U/L (25-165) Total Protein 6.9g/dL (6.4-8.4) Albumin 4.1g/dL (3.4-5.0) Hold Hernandez Top Tube Received (Received) Hold Urine Received (Received) Troponin T 0.010ug/L (0.0-0.011) Re-Eval/Medical Decision Med Decision/Clinical Course The patient is a 86 year old woman with history of mild cognitive difficulties, CAD, Afib s/p ablation and pacer implantation on warfarin, HTN, and anxiety, who presents to the emergency department with her daughter complaining of substernal chest pain that began this morning around 0900 when she woke up. Her daughter states the patient is unable to remember when the pain started and has given her two different stories. The pain started at sometime this morning around 0900 and continued until around 1600. Her pain is not worse with exertion. She does notice increased pain with coughing. Her daughter believes she may have had a panic attack and gave the patient Ativan. She denies acidic taste in her mouth or acid reflux symptoms. She has had multiple ED visits with similar complaints over the past year, all of which have led to a benign workup. Her most recent visit was yesterday. Her daughter has a plan to get in contact with a psychiatrist. She has not had any recent falls or head injuries. Treated with fluids and Ativan, aspirin given prior to arrival. CXR: Obtained, reviewed and interpreted by myself shows no evidence of acute infiltrates, effusions or pneumothorax. Cardiac and mediastinal silhouette normal. No bony or soft tissue abnormalities. EKG was obtained and interpreted by myself as documented above. LABS: CBC: no leukocytosis, stable hct 34.9, CBC otherwise unremarkable, CMP: mildly hyponatremia with a Na of 130, good kidney function, nl electrolytes, negative troponin Patient remained symptom-free, calm and in no apparent distress. Repeat troponin negative. I had a long discussion with the patient's daughter and she strongly feels that the patient's presentation today is related to anxiety. She reports a lot of difficulty managing her mother's anxiety and panic attacks. She reports that benzodiazepines were quite effective but lead to confusion. She is currently working on establishing follow-up for her with a psychiatrist and they have an appointment with her primary care physician in the next couple weeks to further discuss these episodes. Patient's daughter states that she was brought here solely due to management of her anxiety/panic that she does not have any concern for acute coronary syndrome. She states that she feels that she is now back to her normal baseline and would like her to be discharged home. I advised him to return right away should she develop any new or evolving symptoms. I agree that her presentation is unlikely to be reflective of acute coronary syndrome at this time but explained that I cannot definitively rule this out. My suspicion for pulmonary embolism is really relatively low based upon the overall clinical picture. Follow cautions were reviewed in detail and the patient was discharged in stable condition. Source of Hx: Old records, Family Time of Eval: 21:30 Re-Evaluation/Progress Note: Discussed plan for discharge after lab results. All questions were addressed. Counseled Regarding: Diagnosis, Lab results, Need for follow-up, When/why to return to ED Discharge & Departure Primary Impression: Chest pain Chest pain type: unspecified Qualified Code: R07.9 - Chest pain, unspecified Additional Impressions: Panic attack History of coronary artery disease Hyponatremia Disposition: Home Discharge Condition All VS Reviewed: Yes Condition: Stable Additional Instructions: Thank you for seeking care at the emergency room. It is difficult for us to make definitive diagnoses in the ED but we believe that you are experiencing chest pain that may be related to anxiety. Our primary goal today in the ED was to evaluate you for any life-threatening conditions. Your evaluation was reassuring. Continue your normal medication as prescribed. You should follow-up with your primary doctor early next week. You should return to the ED immediately if you develop increased chest pain, shortness of breath, lightheadedness, weakness or any other concerning signs or symptoms. Thank you for letting us partake in your care today. Referrals: Ramirez Rizvi DO (PCP) Scribe Attestation Portions of this note were transcribed by Remedios Sutherland. I, Dr. Bull personally performed the history, physical exam and medical decision-making; I reviewed and confirmed the accuracy of the information in the transcribed note. Signed by: Nakul Dangelo, 01/20/2017 and 2233. copies to: Ramirez Rizvi Beck O MD Jan 20, 2017 17:59 Remedios Sutherland Jan 20, 2017 18:15
[2017-01-20 18:03] VITALS: BP 180/69; PULSE 70; RESP 12; O2SAT 100
[2017-01-20 20:53] LABS: INR 2.63 ratio
[2017-01-20 22:17] VITALS: BP 150/57; PULSE 69; O2SAT 97
== END 2017-01-20 22:20 | disposition home or self-care (01) ==
LOC: SED 16:12
DX: R07.9 Chest pain, unspecified (principal); F41.0 Panic disorder [episodic paroxysmal anxiety]; I25.10 Atherosclerotic heart disease of native coronary artery without angina pectoris; E87.1 Hypo-osmolality and hyponatremia; I10 Essential (primary) hypertension; K21.9 Gastro-esophageal reflux disease without esophagitis; J45.909 Unspecified asthma, uncomplicated; J44.9 Chronic obstructive pulmonary disease, unspecified; E11.9 Type 2 diabetes mellitus without complications; E78.5 Hyperlipidemia, unspecified; Z79.01 Long term (current) use of anticoagulants; Z95.0 Presence of cardiac pacemaker; Z87.891 Personal history of nicotine dependence; Z88.5 Allergy status to narcotic agent; Z88.2 Allergy status to sulfonamides; Z88.8 Allergy status to other drugs, medicaments and biological substances